=== PATIENT | male | born 1950 | race Caucasian/White ===

== ENCOUNTER → 2023-09-18 10:49 | Outpatient (REF) | payer MEDICARE, SELFPAY ==
[2023-09-18 13:59] LABS: Blood Urea Nitrogen 54 mg/dl (9-20); Calcium 9.5 mg/dl (8.4-10.2); Carbon Dioxide 25 mmol/L (22-30); Chloride 103 mmol/L (98-107); Glucose 161 mg/dl (70-99); Phosphorus 4.6 mg/dl (2.5-4.5); Potassium 4.5 mmol/L (3.5-5.1); Sodium 136 mmol/L (135-145); eGFR 29.07
[2023-09-18 14:17] LABS: NT-proBNP 2150 pg/ml
[2023-09-18 14:32] LABS: Protein/creatinine Ratio 0.6; Urine Protein 61 mg/dl
[2023-09-19 11:46] LABS: Intact PTH 53.4 pg/ml (13.6-85.8)
== END ==
LOC: HWLAB 10:49
PROVIDERS: ATTENDING PHYSICIAN Specialist; FAMILY PHYSICIAN Student in an Organized Health Care Education/Training Program
DX: N18.4 Chronic kidney disease, stage 4 (severe) (principal); I10 Essential (primary) hypertension; D64.9 Anemia, unspecified; E11.9 Type 2 diabetes mellitus without complications
CPT/HCPCS: 36415; 80048; 82570; 83880; 83970; 84100; 84156; 85018

== ENCOUNTER → 2023-11-13 12:41 | Outpatient (REF) | payer MEDICARE, SELFPAY | LOC: RCS 12:41 | PROVIDERS: ATTENDING PHYSICIAN Internal Medicine Cardiovascular Disease; FAMILY PHYSICIAN Student in an Organized Health Care Education/Training Program | DX: I48.11 Longstanding persistent atrial fibrillation (principal); I27.21 Secondary pulmonary arterial hypertension; I05.9 Rheumatic mitral valve disease, unspecified | CPT/HCPCS: 93306 ==

== ENCOUNTER → 2023-12-31 09:58 | Outpatient (REF) | payer MEDICARE, SELFPAY ==
[2023-12-31 12:55] LABS: Hemoglobin 11.5 g/dL (13.0-18.0)
[2023-12-31 13:38] LABS: Blood Urea Nitrogen 57 mg/dl (9-20); Calcium 9.7 mg/dl (8.4-10.2); Carbon Dioxide 24 mmol/L (22-30); Chloride 103 mmol/L (98-107); Glucose 285 mg/dl (70-99); Phosphorus 4.2 mg/dl (2.5-4.5); Potassium 4.5 mmol/L (3.5-5.1); Sodium 137 mmol/L (135-145); eGFR 29.07
[2023-12-31 14:53] LABS: Intact PTH 99.9 pg/ml (13.6-85.8)
== END ==
LOC: HWLAB 09:58
PROVIDERS: ATTENDING PHYSICIAN Specialist; FAMILY PHYSICIAN Student in an Organized Health Care Education/Training Program
DX: N18.4 Chronic kidney disease, stage 4 (severe) (principal); I10 Essential (primary) hypertension; N25.81 Secondary hyperparathyroidism of renal origin
CPT/HCPCS: 36415; 80048; 83970; 84100; 85018

== ENCOUNTER → 2024-05-28 10:27 | Outpatient (REF) | payer MEDICARE, SELFPAY ==
[2024-05-28 11:05] LABS: % Basophils 0.3 % (0-2); % Eosinophils 0.9 % (0-6); % Immature Granulocytes 0.5 % (0-0.5); % Lymphocytes 9.7 % (20.5-51.1); % Monocytes 9.5 % (1.7-9.3); % Neutrophils 79.1 % (42.2-75.2); Absolute Eosinophils 0.1 10^3/uL (0-0.7); Absolute Immature Granulocytes 0.1 10^3/uL (0-0.05); Absolute Monocytes 0.9 10^3/uL (0.1-0.6); Absolute Neutrophils 7.7 10^3/uL (1.4-6.5); Hematocrit 34.9 % (39.0-52.0); Hemoglobin 11.8 g/dL (13.0-18.0); Mean Corp Hgb Conc. 33.8 g/dL (33.0-37.0); Mean Corpuscular Hgb 29.1 pg (27.0-31.0); Mean Corpuscular Volume 86.2 fL (80.0-94.0); Mean Platelet Volume 9.7 fL (7.4-10.4); Nucleated Red Blood Cells % 0 % (-); Platelet Count 223 10^3/uL (130-400); Red Blood Cell Count 4.05 10^6/uL (4.70-6.10); Red Cell Dist. Width 13.4 % (11.5-14.5); White Blood Cell Count 9.8 10^3/uL (4.8-10.8)
[2024-05-28 11:28] LABS: ALT (SGPT) 24 U/L (0-50); AST (SGOT) 19 U/L (17-59); Albumin 4.4 g/dl (3.5-5.0); Alkaline Phosphatase 128 U/L (38-126); Blood Urea Nitrogen 46 mg/dl (9-20); Calcium 9.8 mg/dl (8.4-10.2); Carbon Dioxide 26 mmol/L (22-30); Chloride 99 mmol/L (98-107); Glucose 298 mg/dl (70-99); Potassium 4.6 mmol/L (3.5-5.1); Sodium 140 mmol/L (135-145); Total Bilirubin 0.4 mg/dl (0.2-1.3); Total Protein 7.2 g/dl (6.3-8.2); eGFR 27.45
== END ==
LOC: REG 10:27
PROVIDERS: ATTENDING PHYSICIAN Student in an Organized Health Care Education/Training Program
DX: R21 Rash and other nonspecific skin eruption (principal); E11.9 Type 2 diabetes mellitus without complications; I10 Essential (primary) hypertension
CPT/HCPCS: 36415; 80053; 83036; 85025

== ENCOUNTER → 2024-09-28 11:48 | Outpatient (REF) | payer MEDICARE, SELFPAY | LOC: HWRAD 11:48 | PROVIDERS: ATTENDING PHYSICIAN Nurse Practitioner Family; FAMILY PHYSICIAN Student in an Organized Health Care Education/Training Program | DX: R06.02 Shortness of breath (principal) | CPT/HCPCS: 71046 ==

== ENCOUNTER → 2024-10-19 10:33 | Outpatient (REF) | payer MEDICARE, SELFPAY ==
[2024-10-19 13:52] LABS: TSH Reflex To Free T4 1.89 uIU/ml (0.47-4.68)
[2024-10-19 14:04] LABS: Albumin 4.6 g/dl (3.5-5.0); Blood Urea Nitrogen 39 mg/dl (9-20); Calcium 9.5 mg/dl (8.4-10.2); Carbon Dioxide 26 mmol/L (22-30); Chloride 102 mmol/L (98-107); Glucose 234 mg/dl (70-99); Phosphorus 3.5 mg/dl (2.5-4.5); Potassium 4.4 mmol/L (3.5-5.1); Sodium 141 mmol/L (135-145); eGFR 28.89
[2024-10-19 14:42] LABS: Glycohemoglobin (HgbA1c) 8.2 % (4.0-5.6)
[2024-10-19 15:02] LABS: Vitamin B12 872 pg/ml (239-931)
[2024-10-22 05:09] LABS: PSA, Ultrasensitive 0.29 ng/mL (0.00-4.00)
== END ==
LOC: HWLAB 10:33
PROVIDERS: ATTENDING PHYSICIAN Student in an Organized Health Care Education/Training Program
DX: G62.9 Polyneuropathy, unspecified (principal); E11.22 Type 2 diabetes mellitus with diabetic chronic kidney disease; N18.4 Chronic kidney disease, stage 4 (severe); Z79.899 Other long term (current) drug therapy; Z85.46 Personal history of malignant neoplasm of prostate
CPT/HCPCS: 36415; 80069; 82607; 83036; 84153; 84155; 84165; 84443

== ENCOUNTER → 2025-04-04 09:59 | Outpatient (REF) | payer MEDICARE, SELFPAY | LOC: HWRCS 09:59 | PROVIDERS: ATTENDING PHYSICIAN Internal Medicine Cardiovascular Disease; FAMILY PHYSICIAN Student in an Organized Health Care Education/Training Program | DX: I48.21 Permanent atrial fibrillation (principal); I27.21 Secondary pulmonary arterial hypertension; I05.9 Rheumatic mitral valve disease, unspecified | CPT/HCPCS: 93306 ==

== ENCOUNTER → 2025-05-11 08:28 | Outpatient (REF) | payer MEDICARE, SELFPAY ==
[2025-05-11 12:41] LABS: ALT (SGPT) 25 U/L (0-50); AST (SGOT) 20 U/L (17-59); Albumin 4.1 g/dl (3.5-5.0); Alkaline Phosphatase 93 U/L (38-126); Blood Urea Nitrogen 36 mg/dl (9-20); Calcium 9.2 mg/dl (8.4-10.2); Carbon Dioxide 27 mmol/L (22-30); Chloride 102 mmol/L (98-107); Glucose 206 mg/dl (70-99); HDL Cholesterol 55 mg/dl; LDL Cholesterol, Calculated 88 mg/dl; Potassium 4.2 mmol/L (3.5-5.1); Sodium 135 mmol/L (135-145); Total Protein 6.8 g/dl (6.3-8.2); Very Low Density Lipoprotein 33 mg/dl (0-30); eGFR 33.95
[2025-05-11 12:56] LABS: Hematocrit 36.9 % (39.0-52.0); Hemoglobin 11.9 g/dL (13.0-18.0); Mean Corp Hgb Conc. 32.2 g/dL (33.0-37.0); Mean Corpuscular Volume 88.5 fL (80.0-94.0); Nucleated Red Blood Cells % 0 % (-); Platelet Count 233 10^3/uL (130-400); Red Cell Dist. Width 13.7 % (11.5-14.5)
[2025-05-11 14:37] LABS: Glycohemoglobin (HgbA1c) 9.0 % (4.0-5.9)
== END ==
LOC: HWLAB 08:28
PROVIDERS: ATTENDING PHYSICIAN Specialist; FAMILY PHYSICIAN Student in an Organized Health Care Education/Training Program
DX: N18.4 Chronic kidney disease, stage 4 (severe) (principal); I10 Essential (primary) hypertension; R80.1 Persistent proteinuria, unspecified; N25.81 Secondary hyperparathyroidism of renal origin; E11.22 Type 2 diabetes mellitus with diabetic chronic kidney disease; E78.5 Hyperlipidemia, unspecified; Z79.01 Long term (current) use of anticoagulants
CPT/HCPCS: 36415; 80053; 80061; 82570; 83036; 83970; 84100; 84156; 85025